=== PATIENT | male | born 1980 | race Caucasian/White ===

== ENCOUNTER → 2017-01-07 | Outpatient (CLI) | payer OTHER | LOC: KOH-I 14:44 | DX: M54.6 Pain in thoracic spine (principal); M41.9 Scoliosis, unspecified | CPT/HCPCS: 72070 ==

== ENCOUNTER 2021-03-30 16:20 | Emergency (ER) | payer OTHER ==
[2021-03-30] MEDS ORDERED: CYCLOBENZAPRINE10 MG PO (19:39)
== END 2021-03-30 20:08 | disposition home or self-care (01) ==
LOC: ER1 16:20
DX: S39.012A Strain of muscle, fascia and tendon of lower back, initial encounter (principal); Z87.891 Personal history of nicotine dependence; Z88.0 Allergy status to penicillin; X58.XXXA Exposure to other specified factors, initial encounter
CPT/HCPCS: 72131; 96372; 99283; J1100; J1885